=== PATIENT | male | born 1975 | race Two or more races ===

== ENCOUNTER 2020-02-17 12:09 | Emergency (ER) | payer MEDICAID, OTHER ==
[~2020-02-17] VITALS: Ht 170.2 cm; Wt 95.3 kg
[2020-02-17] MEDS ORDERED: DexAMETHasone SOD PHOS 10MG/1ML VIAL INJ IM ONE (14:30)
[2020-02-17] MEDS ORDERED: AZITHROMYCIN 250 MG TAB PO ONE (14:30)
[2020-02-17] MEDS ORDERED: cefTRIAXone W LIDOCAINE 1 GM IM IM ONE (14:30)
[2020-02-17 14:38] VITALS: BP 131/85
[2020-02-17] MEDS ORDERED: cefTRIAXone SOD 1,000 MG VL IM ONE (15:00)
[2020-02-17] MEDS ORDERED: ACETAMINOPHEN 325 MG TAB PO ONE (15:30)
[2020-02-28] MEDS ORDERED: BUDE2SUS3 IN (13:07)
[2020-02-28] MEDS ORDERED: CHOL1CAP47 PO (13:07)
[2020-02-28] MEDS ORDERED: DEX4T PO (13:07)
[2020-02-28] MEDS ORDERED: FAMO20TA10 PO (13:07)
[2020-02-28] MEDS ORDERED: ASPI-378 PO (13:07)
[2020-02-28] MEDS ORDERED: ASCO10003 PO (13:07)
[2020-02-28] MEDS ORDERED: DOXY-286 PO (13:07)
[2020-02-28] MEDS ORDERED: ALBUAER3 IN (13:07)
[2020-02-28] MEDS ORDERED: ZINC220T6 PO (13:07)
== END 2020-02-17 16:25 | disposition home or self-care (01) ==
LOC: EDBD → ER 12:09
DX: U07.1 COVID-19 (principal); J12.89 Other viral pneumonia
CPT/HCPCS: 71045; 96372; 99284; J0696; J1100; J7030

== ENCOUNTER 2020-02-24 12:09 | Inpatient (IN) | payer MEDICAID, OTHER ==
[~2020-02-24] VITALS: Ht 167.6 cm; Wt 84.9 kg
[2020-02-24] MEDS ORDERED: ZINC SULFATE 220mg CAP or TAB PO ONE (12:30)
[2020-02-24] MEDS ORDERED: AZITHROMYCIN 500MG/ 250ML 250 ML IV ONE (12:30)
[2020-02-24] MEDS ORDERED: methylPREDNISolone SOD SUCC 125 MG/2 ML VL IV ONE (12:30)
[2020-02-24] MEDS ORDERED: ASCORBIC ACID 500 MG TAB PO ONE (12:30)
[2020-02-24] MEDS ORDERED: REMDESIVIR PER PHARMACY 0 ML IV SCH (12:30)
[2020-02-24] MEDS ORDERED: CHOLECALCIFEROL (VITD3) 2,000 UNIT CAP/TAB PO ONE (12:30)
[2020-02-24 13:45] LABS: Hematocrit 43.1 % (41.0-53.0); Hemoglobin 15.2 g/dL (13.5-17.5); Mean Corpuscular Hemoglobin 31.5 pg (28.0-32.0); Mean Corpuscular Hgb Conc. 35.3 g/dL (32.0-36.0); Mean Corpuscular Volume 89.1 fL (80.0-100.0); Red Blood Cells 4.84 10^6/uL (4.5-5.90); Red Cell Distribution Width 12.5 % (11.8-14.3); White Blood Cell 7.9 10^3/uL (4.4-10.8)
[2020-02-24 13:55] LABS: Band Neutrophils % (manual) 0; Basophils % (manual) 0 (0.0-2.0); Blast Cells 0; Eosinophils % (manual) 0 (0-7); Promyelocytes % 0; Reactive Lymphocytes 0
[2020-02-24 14:03] LABS: Albumin 2.9 g/dL (3.4-5.0); Calcium 8.3 mg/dL (8.5-10.1)
[2020-02-24 14:05] LABS: Lactic Acid w/Reflex 2.7 mmol/L (0.4-2.0)
[2020-02-24 14:10] LABS: Lymphocytes % (manual) 8 (10.0-50.0); Metamyelocytes % 2; Monocytes % (manual) 7 (0-12); Myelocytes % 1
[2020-02-24 14:11] LABS: BUN/Creatinine Ratio 13.7; Bilirubin, Total 0.6 mg/dL (0.2-1.0); CRP High Sensitivity 1.22 mg/dL (< 0.3); Total Protein 7.6 g/dL (6.4-8.2)
[2020-02-24] MEDS ORDERED: POTASSIUM CHL 20MEQ/100ML 100 ML IV ONE (14:30)
[2020-02-24] MEDS ORDERED: MORPHINE SULFATE INJECTION 2 MG/ML SYRG IV PRN ×2 (15:00)
[2020-02-24] MEDS ORDERED: ONDANSETRON HCL 4 MG/2 ML VIAL IV PRN (15:00)
[2020-02-24] MEDS ORDERED: ACETAMINOPHEN 500 MG TAB PO PRN (15:00)
[2020-02-24] MEDS ORDERED: HYDROcodone-ACET 5/325MG TAB PO PRN (15:00)
[2020-02-24] MEDS ORDERED: NITROGLYCERIN 0.4 MG SL TAB SL PRN (15:00)
[2020-02-24] MEDS ORDERED: guaiFENesin-DM 100/10mg/5ml SYR PO PRN (15:30)
[2020-02-24] MEDS: cefTRIAXone 1GM/50ML D5W 50 ML IV SCH (15:32)
[2020-02-24] MEDS ORDERED: REMDESIVIR 200 MG in NS 210ml LOADING DOSE ADULT IV ONE (20:30)
[2020-02-24] MEDS: BUDESONIDE (INHALATION) 180 MCG IH IN SCH (22:00)
[2020-02-24] MEDS: ENOXAPARIN SOD 40 MG/0.4 ML SYRINGE SC SCH (22:14)
[2020-02-25 04:00] VITALS: BP 111/73
[2020-02-25 04:42] VITALS: BP 111/73
[2020-02-25] MEDS ORDERED: ZINC220C8 PO (05:30)
[2020-02-25] MEDS ORDERED: DEXA2TAB PO (05:30)
[2020-02-25] MEDS ORDERED: FAMO-12 PO (05:30)
[2020-02-25] MEDS ORDERED: AZIT500T PO (05:30)
[2020-02-25] MEDS: BUDESONIDE (INHALATION) 180 MCG IH IN SCH ×2 (06:30→08:30)
[2020-02-25 08:00] VITALS: BP 131/84
[2020-02-25] MEDS: ENOXAPARIN SOD 40 MG/0.4 ML SYRINGE SC SCH ×2 (09:09→23:07)
[2020-02-25] MEDS: FAMOTIDINE 20 MG TAB PO SCH (09:10)
[2020-02-25] MEDS: CHOLECALCIFEROL (VITD3) 2,000 UNIT CAP/TAB PO SCH (09:11)
[2020-02-25] MEDS: DexAMETHasone SOD PHOS 10MG/1ML VIAL INJ IV SCH (09:11)
[2020-02-25] MEDS: ASCORBIC ACID 1,000 MG TAB PO SCH (09:11)
[2020-02-25] MEDS: ZINC SULFATE 220mg CAP or TAB PO SCH (09:11)
[2020-02-25 09:53] LABS: Basophils # (auto) 0 10 ^3/uL (0-0.2); Basophils % (auto) 0.1 % (0.0-2.0); Eosinophils # (auto) 0.2 10 ^3/uL (0-0.8); Eosinophils % (auto) 1.6 % (0.0-7.0); Hematocrit 39.3 % (41.0-53.0); Hemoglobin 13.8 g/dL (13.5-17.5); Lymphocytes # (auto) 0.9 10 ^3/uL (0.4-5.4); Lymphocytes % (auto) 7.8 % (10.0-50.0); Mean Corpuscular Hemoglobin 31.3 pg (28.0-32.0); Mean Corpuscular Volume 89.5 fL (80.0-100.0); Monocytes # (auto) 0.4 10 ^3/uL (0-1.3); Monocytes % (auto) 3.4 % (0.0-12.0); Neutrophils # (auto) 10.1 10 ^3/uL (1.6-8.6); Neutrophils % (auto) 87.1 % (37.0-80.0); Nucleated Red Blood Cells % 0.1 %; Red Cell Distribution Width 12.8 % (11.8-14.3); White Blood Cell 11.6 10^3/uL (4.4-10.8)
[2020-02-25 10:15] LABS: Albumin 2.4 g/dL (3.4-5.0); Calcium 8.1 mg/dL (8.5-10.1); Potassium 3.3 mmol/L (3.5-5.1)
[2020-02-25 10:18] LABS: BUN/Creatinine Ratio 22.5; Bilirubin, Total 0.4 mg/dL (0.2-1.0); Total Protein 6.3 g/dL (6.4-8.2)
[2020-02-25] MEDS: cefTRIAXone 1GM/50ML D5W 50 ML IV SCH (11:00)
[2020-02-25] MEDS: AZITHROMYCIN 500MG/ 250ML 250 ML IV SCH (12:00)
[2020-02-25] MEDS: REMDESIVIR 100mg 100 MG in SODIUM CHL 0.9% 230 ML IV SCH (15:00)
[2020-02-25] MEDS ORDERED: POTASSIUM CHL 20 Meq TABLET PO ONE (15:30)
[2020-02-25] MEDS ORDERED: DEXTROSE (50%) 50ML SYRG IV PRN (15:30)
[2020-02-25 15:46] VITALS: BP 126/72
[2020-02-25] MEDS: ACCU-CHEK COMFORT CURVE STRIP VI SCH ×2 (17:34→22:00)
[2020-02-25] MEDS: InsuLIN REG 1unit/0.01ml Soln (100units/ml) SC SCH ×2 (18:05→22:52)
[2020-02-26] VITALS: BP 115/76
[2020-02-26] MEDS: ACCU-CHEK COMFORT CURVE STRIP VI SCH ×4 (06:08→21:07)
[2020-02-26] MEDS: InsuLIN REG 1unit/0.01ml Soln (100units/ml) SC SCH ×4 (06:08→21:11)
[2020-02-26] MEDS: BUDESONIDE (INHALATION) 180 MCG IH IN SCH ×2 (06:25→19:05)
[2020-02-26 07:11] LABS: Hematocrit 40.4 % (41.0-53.0); Hemoglobin 14.3 g/dL (13.5-17.5); Mean Corpuscular Hemoglobin 31.7 pg (28.0-32.0); Mean Corpuscular Hgb Conc. 35.3 g/dL (32.0-36.0); Mean Corpuscular Volume 89.8 fL (80.0-100.0); Red Cell Distribution Width 12.5 % (11.8-14.3); White Blood Cell 9.2 10^3/uL (4.4-10.8)
[2020-02-26 07:19] LABS: Basophils % (manual) 0 (0.0-2.0); Blast Cells 0; Eosinophils % (manual) 0 (0-7); Metamyelocytes % 0; Promyelocytes % 0; Reactive Lymphocytes 0
[2020-02-26 07:25] LABS: INR 1.03 (0.9-1.15)
[2020-02-26 07:26] LABS: Lactic Acid w/Reflex 2.2 mmol/L (0.4-2.0)
[2020-02-26 07:29] LABS: Potassium 3.9 mmol/L (3.5-5.1)
[2020-02-26 07:39] LABS: Albumin 2.5 g/dL (3.4-5.0); BUN/Creatinine Ratio 22.1; Bilirubin, Total 0.4 mg/dL (0.2-1.0); CRP High Sensitivity 0.67 mg/dL (< 0.3); Calcium 8.2 mg/dL (8.5-10.1); Magnesium 2.6 mg/dL (1.6-2.6); Total Protein 6.3 g/dL (6.4-8.2)
[2020-02-26 08:00] VITALS: BP 115/78
[2020-02-26] MEDS: cefTRIAXone 1GM/50ML D5W 50 ML IV SCH (08:39)
[2020-02-26] MEDS: ALBUTEROL SULF HFA 90MCG INH 200DOSE IN PRN ×2 (09:22→19:05)
[2020-02-26] MEDS ORDERED: FUROSEMIDE 20 MG/2 ML VIAL IV SCH (10:00)
[2020-02-26] MEDS: AZITHROMYCIN 500MG/ 250ML 250 ML IV SCH (11:05)
[2020-02-26] MEDS: ASCORBIC ACID 1,000 MG TAB PO SCH (11:06)
[2020-02-26] MEDS: CHOLECALCIFEROL (VITD3) 2,000 UNIT CAP/TAB PO SCH (11:06)
[2020-02-26] MEDS: ENOXAPARIN SOD 40 MG/0.4 ML SYRINGE SC SCH ×2 (11:06→21:06)
[2020-02-26] MEDS: DexAMETHasone SOD PHOS 10MG/1ML VIAL INJ IV SCH (11:06)
[2020-02-26] MEDS: FAMOTIDINE 20 MG TAB PO SCH (11:06)
[2020-02-26] MEDS: POTASSIUM CHL 10 Meq TABLET PO SCH (11:06)
[2020-02-26] MEDS: ZINC SULFATE 220mg CAP or TAB PO SCH (11:07)
[2020-02-26 12:10] LABS: Band Neutrophils % (manual) 5; Lymphocytes % (manual) 11 (10.0-50.0); Monocytes % (manual) 4 (0-12); Myelocytes % 1
[2020-02-26 14:00] VITALS: BP 99/64
[2020-02-26] MEDS ORDERED: IVERMECTIN 3 MG TAB PO ONE (14:26)
[2020-02-26] MEDS: REMDESIVIR 100mg 100 MG in SODIUM CHL 0.9% 230 ML IV SCH (15:47)
[2020-02-26] MEDS: FUROSEMIDE 40 MG/4 ML VIAL IV SCH (15:51)
[2020-02-27] VITALS: BP 115/79
[2020-02-27] MEDS: ACCU-CHEK COMFORT CURVE STRIP VI SCH ×4 (06:09→21:43)
[2020-02-27] MEDS: InsuLIN REG 1unit/0.01ml Soln (100units/ml) SC SCH ×4 (06:09→21:42)
[2020-02-27 06:13] LABS: Albumin 2.6 g/dL (3.4-5.0); Calcium 7.9 mg/dL (8.5-10.1); Potassium 3.8 mmol/L (3.5-5.1)
[2020-02-27 06:18] LABS: BUN/Creatinine Ratio 26.7; Bilirubin, Direct 0.2 mg/dL (0-0.2); Bilirubin, Total 0.4 mg/dL (0.2-1.0); Total Protein 6.4 g/dL (6.4-8.2)
[2020-02-27] MEDS: ALBUTEROL SULF HFA 90MCG INH 200DOSE IN PRN ×2 (06:30→21:34)
[2020-02-27 08:00] VITALS: BP 127/91
[2020-02-27] MEDS: IVERMECTIN 3 MG TAB PO SCH (09:23)
[2020-02-27] MEDS: AZITHROMYCIN 500MG/ 250ML 250 ML IV SCH (09:23)
[2020-02-27] MEDS: cefTRIAXone 1GM/50ML D5W 50 ML IV SCH (09:23)
[2020-02-27] MEDS: POTASSIUM CHL 10 Meq TABLET PO SCH (09:24)
[2020-02-27] MEDS: FUROSEMIDE 40 MG/4 ML VIAL IV SCH (09:24)
[2020-02-27] MEDS: ENOXAPARIN SOD 40 MG/0.4 ML SYRINGE SC SCH ×2 (09:24→21:03)
[2020-02-27] MEDS: DexAMETHasone SOD PHOS 10MG/1ML VIAL INJ IV SCH (09:24)
[2020-02-27] MEDS: FAMOTIDINE 20 MG TAB PO SCH (09:25)
[2020-02-27] MEDS: ZINC SULFATE 220mg CAP or TAB PO SCH (09:25)
[2020-02-27] MEDS: CHOLECALCIFEROL (VITD3) 2,000 UNIT CAP/TAB PO SCH (09:25)
[2020-02-27] MEDS: ASCORBIC ACID 1,000 MG TAB PO SCH (09:25)
[2020-02-27] MEDS ORDERED: FUROSEMIDE 40 MG/4 ML VIAL IV SCH (10:00)
[2020-02-27] MEDS: BUDESONIDE (INHALATION) 180 MCG IH IN SCH ×2 (10:19→21:34)
[2020-02-27] MEDS ORDERED: ERGOCALCIFEROL 50,000 UNIT(1.25MG) CAP PO SCH (13:30)
[2020-02-27] MEDS: REMDESIVIR 100mg 100 MG in SODIUM CHL 0.9% 230 ML IV SCH (15:08)
[2020-02-27 16:00] VITALS: BP 121/72
[2020-02-27 23:52] VITALS: BP 119/72
[2020-02-28] MEDS: ACCU-CHEK COMFORT CURVE STRIP VI SCH ×3 (06:42→16:07)
[2020-02-28] MEDS: InsuLIN REG 1unit/0.01ml Soln (100units/ml) SC SCH ×3 (06:42→16:07)
[2020-02-28 08:00] VITALS: BP 102/66
[2020-02-28 08:07] LABS: Albumin 2.7 g/dL (3.4-5.0); Calcium 8.1 mg/dL (8.5-10.1); Magnesium 2.8 mg/dL (1.6-2.6); Potassium 4.3 mmol/L (3.5-5.1)
[2020-02-28 08:13] LABS: BUN/Creatinine Ratio 21.4; Bilirubin, Direct 0.2 mg/dL (0-0.2); Bilirubin, Total 0.4 mg/dL (0.2-1.0); Total Protein 6.7 g/dL (6.4-8.2)
[2020-02-28] MEDS: BUDESONIDE (INHALATION) 180 MCG IH IN SCH (09:08)
[2020-02-28] MEDS: AZITHROMYCIN 500MG/ 250ML 250 ML IV SCH (10:17)
[2020-02-28] MEDS: cefTRIAXone 1GM/50ML D5W 50 ML IV SCH (10:17)
[2020-02-28] MEDS: DexAMETHasone SOD PHOS 10MG/1ML VIAL INJ IV SCH (10:18)
[2020-02-28] MEDS: ENOXAPARIN SOD 40 MG/0.4 ML SYRINGE SC SCH (10:18)
[2020-02-28] MEDS: ASCORBIC ACID 1,000 MG TAB PO SCH (10:18)
[2020-02-28] MEDS: CHOLECALCIFEROL (VITD3) 2,000 UNIT CAP/TAB PO SCH (10:18)
[2020-02-28] MEDS: ZINC SULFATE 220mg CAP or TAB PO SCH (10:18)
[2020-02-28] MEDS: FUROSEMIDE 40 MG/4 ML VIAL IV SCH (10:18)
[2020-02-28] MEDS: IVERMECTIN 3 MG TAB PO SCH (10:18)
[2020-02-28] MEDS: POTASSIUM CHL 10 Meq TABLET PO SCH (10:19)
[2020-02-28] MEDS: FAMOTIDINE 20 MG TAB PO SCH (10:19)
[2020-02-28] MEDS ORDERED: ZINC220T6 PO (13:07)
[2020-02-28] MEDS ORDERED: ASCO10003 PO (13:07)
[2020-02-28] MEDS ORDERED: ASPI-378 PO (13:07)
[2020-02-28] MEDS ORDERED: BUDE2SUS3 IN (13:07)
[2020-02-28] MEDS ORDERED: ALBUAER3 IN (13:07)
[2020-02-28] MEDS ORDERED: FAMO20TA10 PO (13:07)
[2020-02-28] MEDS ORDERED: DOXY-286 PO (13:07)
[2020-02-28] MEDS ORDERED: CHOL1CAP47 PO (13:07)
[2020-02-28] MEDS ORDERED: DEX4T PO (13:07)
[2020-02-28 16:00] VITALS: BP 103/74
[2020-02-28] MEDS: REMDESIVIR 100mg 100 MG in SODIUM CHL 0.9% 230 ML IV SCH (16:07)
[2020-02-28 16:21] VITALS: BP 102/66
== END 2020-02-28 19:00 | disposition home or self-care (01) | DRG 720 ==
LOC: ER 12:09 → TELE 15:01 → TELE-WESTW 02-25 03:53
PROVIDERS: ADMIT Nurse Practitioner Acute Care; ATTEND Internal Medicine
PROC: XW033E5 Introduction of Remdesivir Anti-infective into Peripheral Vein, Percutaneous Approach, New Technology Group 5 (ICD-10-PCS; principal; 2020-02-24)
DX: A41.89 Other specified sepsis (principal); U07.1 COVID-19; J12.82 Pneumonia due to coronavirus disease 2019; J96.01 Acute respiratory failure with hypoxia; E87.6 Hypokalemia; R73.9 Hyperglycemia, unspecified; E66.01 Morbid (severe) obesity due to excess calories; D68.59 Other primary thrombophilia; E55.9 Vitamin D deficiency, unspecified; E88.09 Other disorders of plasma-protein metabolism, not elsewhere classified; J45.901 Unspecified asthma with (acute) exacerbation; Z87.891 Personal history of nicotine dependence; Z68.30 Body mass index [BMI] 30.0-30.9, adult; D89.839 Cytokine release syndrome, grade unspecified
CPT/HCPCS: 36415; 71045; 80053; 80061; 80076; 82306; 82728; 82962; 83036; 83605; 83615; 83735; 84443; 85007; 85025; 85027; 85379; 85610; 86141; 86850; 86900; 86901; 87040; 87804; 93970; 94640; 96365; 96366; 96375; G0378; J0696; J1100; J1815; J3480

== ENCOUNTER 2024-07-15 09:36 | Outpatient (CLI) | payer OTHER ==
[~2024-07-15 09:36] MED LIST: ALBUAER3 IN; ASCO10003 PO; ASPI-378 PO; AZIT500T PO; BUDE2SUS3 IN; CHOL1CAP47 PO; DEX4T PO; DEXA2TAB PO; DOXY-286 PO; FAMO-12 PO; FAMO20TA10 PO; ZINC220C8 PO; ZINC220T6 PO
[2024-07-15 10:03] LABS: Basophils # (auto) 0 10 ^3/uL (0-0.2); Basophils % (auto) 0.8 % (0.0-2.0); Eosinophils # (auto) 0.1 10 ^3/uL (0-0.8); Hematocrit 46.2 % (41.0-53.0); Hemoglobin 16.1 g/dL (13.5-17.5); Lymphocytes # (auto) 1.1 10 ^3/uL (0.4-5.4); Lymphocytes % (auto) 20.7 % (10.0-50.0); Mean Corpuscular Hemoglobin 31.3 pg (28.0-32.0); Mean Corpuscular Hgb Conc. 34.8 g/dL (32.0-36.0); Mean Corpuscular Volume 89.9 fL (80.0-100.0); Monocytes # (auto) 0.4 10 ^3/uL (0-1.3); Monocytes % (auto) 7.1 % (0.0-12.0); Neutrophils # (auto) 3.8 10 ^3/uL (1.6-8.6); Neutrophils % (auto) 69.4 % (37.0-80.0); Nucleated Red Blood Cells % 0.1 %; Platelet Count (auto) 199 10^3/uL (140-450); Red Blood Cells 5.14 10^6/uL (4.5-5.90); Red Cell Distribution Width 13.3 % (11.8-14.3); White Blood Cell 5.4 10^3/uL (4.4-10.8)
[2024-07-15 10:09] LABS: Urine Blood TRACE /uL (Negative); Urine Clarity Clear (Clear); Urine Color Yellow (Yellow); Urine Protein, UAD Negative (Negative); Urine Urobilinogen Normal (Negative); Urine pH 5.5 (5.0-9.0)
[2024-07-15 10:35] LABS: Alkaline Phosphatase 113 U/L (46-116); Amphetamine Screen, Urine Neg (NEGATIVE); Anion Gap 8 (5-15); BUN/Creatinine Ratio 10.1 (10.0-20.0); Barbiturate Scree,Urine Neg (NEGATIVE); Benzodiazephine Screen, Urine Neg (NEGATIVE); Calcium 9.7 mg/dL (8.7-10.4); Cannabinoid Screen, Urine Neg (NEGATIVE); Carbon Dioxide 22 mmol/L (20-31); Cocaine Screen, Urine Neg (NEGATIVE); Opiate Scree,Urine Neg (NEGATIVE); Phencyclidine Screen, Urine Neg (NEGATIVE); Potassium 4.2 mmol/L (3.5-5.1); Sodium 140 mmol/L (136-145); Total Protein 7.2 g/dL (5.7-8.2); Triglycerides 145 mg/dL (< 150)
[2024-07-15 10:36] LABS: Albumin 4.5 g/dL (3.2-4.8); Bilirubin, Total 0.6 mg/dL (0.2-1.0); Cholesterol 174 mg/dL (< 200); HDL Cholesterol 46 mg/dL (40-59)
[2024-07-15 10:44] LABS: Blood Urea Nitrogen 8 mg/dL (9-23); Chloride 110 mmol/L (98-107); Glucose 120 mg/dL (74-106)
[2024-07-15 10:45] LABS: Alanine Aminotransferase 88 U/L (7-40); Aspartate Aminotransferase 60 U/L (13-40); LDL Cholesterol 118 mg/dL (< 100)
[2024-07-15 11:41] LABS: Hepatitis B Core Total AB Negative (Negative)
[2024-07-15 12:49] LABS: Hepatitis A Total Antibody Positive (Negative); Hepatitis B Surface Antibody Negative (Negative); Hepatitis B Surface Antigen Negative (Negative); Hepatitis C Antibody Negative (Negative)
== END 2024-07-15 17:00 | disposition home or self-care (01) ==
LOC: LAB 09:36
PROVIDERS: ATTEND Licensed Practical Nurse
DX: Z13.6 Encounter for screening for cardiovascular disorders (principal); Z00.01 Encounter for general adult medical examination with abnormal findings; Z11.3 Encounter for screening for infections with a predominantly sexual mode of transmission; Z13.220 Encounter for screening for lipoid disorders; Z13.1 Encounter for screening for diabetes mellitus; D68.4 Acquired coagulation factor deficiency; D55.9 Anemia due to enzyme disorder, unspecified; R53.83 Other fatigue; Z13.29 Encounter for screening for other suspected endocrine disorder; Z79.899 Other long term (current) drug therapy
CPT/HCPCS: 36415; 80053; 80061; 80307; 81003; 82043; 82306; 83036; 84443; 85025; 86703; 86704; 86706; 86708; 86780; 86803; 87340

== ENCOUNTER 2024-08-02 12:18 | Outpatient (CLI) | payer OTHER | END 2024-08-02 17:00 | disposition home or self-care (01) | LOC: LAB 12:18 | PROVIDERS: ATTEND Licensed Practical Nurse | DX: D68.4 Acquired coagulation factor deficiency (principal); Z13.6 Encounter for screening for cardiovascular disorders; Z13.220 Encounter for screening for lipoid disorders; Z13.29 Encounter for screening for other suspected endocrine disorder; Z13.1 Encounter for screening for diabetes mellitus; Z11.3 Encounter for screening for infections with a predominantly sexual mode of transmission; R53.83 Other fatigue; D55.9 Anemia due to enzyme disorder, unspecified; Z00.01 Encounter for general adult medical examination with abnormal findings | CPT/HCPCS: 82274 ==